=== PATIENT | male | born 1965 | race Two or more races ===

== ENCOUNTER 2024-12-28 09:50 | Emergency (ER) | payer OTHER ==
[~2024-12-28] VITALS: Ht 167.6 cm; Wt 72.6 kg
[2024-12-28] MEDS ORDERED: ORPHENADRINE CITRATE 30 MG/ML AMPUL IM ONE (10:30)
[2024-12-28 11:15] LABS: BASO % 1.4 % (0.1-1.2); EOS # 0.25 (0.04-0.54); EOS % 2.3 % (0.7-7.0); LYMPH # 1.42 (1.18-3.74); LYMPH % 13.1 % (19.3-53.1); MEAN PLATELET VOLUME 9.50 fl (9.4-12.4); MONO # 0.90 (0.24-0.82); MONO % 8.3 % (4.7-12.5); NEUT # 8.08 (1.56-6.13); NEUT % 74.2 % (34.0-71.1); RED CELL DISTRIBUTION WIDTH 12.0 % (11.6-14.4)
[2024-12-28 11:48] LABS: ALT/SGPT 39.0 U/L (12-78); AST/SGOT 34.0 U/L (15-37); BILIRUBIN TOTAL 0.49 mg/dL (0.3-1.2); BUN CREA RATIO 11.0 (7.0-25.0); CREATININE SERUM 1.0 mg/dL (0.70-1.30); GFR 77.02; GLOBULINA 4.2 G/DL (2.4-3.5); GLUCOSE FASTING 93.0 mg/dL (65-100); OSMOLALITY SERUM 282.0 MOSM/KG (275-295)
== END 2024-12-28 14:36 | disposition home or self-care (01) ==
LOC: ER 09:50
PROVIDERS: General Practice
DX: S92.424A Nondisplaced fracture of distal phalanx of right great toe, initial encounter for closed fracture (principal); X58.XXXA Exposure to other specified factors, initial encounter; Y93.89 Activity, other specified; Y92.89 Other specified places as the place of occurrence of the external cause; Y99.9 Unspecified external cause status; M77.31 Calcaneal spur, right foot